=== PATIENT | female | born 1990 | race Caucasian/White ===

== ENCOUNTER 2017-05-29 05:31 | Inpatient (IN) | payer SELFPAY ==
[2017-05-29] MEDS ORDERED: Sodium Chloride 0.9% 2.5 ML Syringe FLUSH PRN (06:34)
[2017-05-29] MEDS ORDERED: Sodium Chloride 0.9% 10 ML Syringe FLUSH PRN (06:34)
[2017-05-29] MEDS ORDERED: ceFAZolin 2 GM in Premix Bag 1 BAG IV ONE (06:34)
[2017-05-29] MEDS ORDERED: Oxytocin/0.9 % Sodium Chloride 30 UNIT/500 ML BAG IV SCH (06:45)
[2017-05-29] MEDS ORDERED: Citric Acid/Sodium Citrate Solution 30 ML Cup PO SCH (06:45)
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
[2017-05-29] MEDS: Lactated Ringers 1,000 ML IV SCH ×3 (12:19→20:42)
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
[2017-05-29] MEDS ORDERED: ePHEDrine 50 MG/ML SDV ONE ×2 (20:12→20:14)
[2017-05-29] MEDS ORDERED: Ondansetron 4 MG/2 ML SDV ONE (20:12)
[2017-05-29] MEDS ORDERED: Oxytocin 10 Units/1 ML SDV ONE (20:12)
[2017-05-29] MEDS ORDERED: Morphine PF 10 MG/10 ML SDV ONE (20:13)
[2017-05-29] MEDS ORDERED: Water For Injection, Sterile 20 ML ONE (20:14)
[2017-05-29] MEDS ORDERED: ceFAZolin 1 GM Vial ONE (20:58)
[2017-05-29] MEDS ORDERED: Sodium Chloride 0.9% 20 ML ONE (20:58)
[2017-05-29] MEDS ORDERED: Octyl 2-Cyanoacrylate 1 Tube ONE (21:33)
[2017-05-29] MEDS ORDERED: Ondansetron 4 MG/2 ML SDV IVPUSH PRN (21:34)
[2017-05-29] MEDS ORDERED: Acetaminophen/oxyCODONE 325-5 MG Tab PO PRN ×2 (21:34)
[2017-05-29] MEDS ORDERED: Bisacodyl 10 MG Supp RECTAL PRN (21:34)
[2017-05-29] MEDS ORDERED: Lanolin 100% Cream 7 GM Tube TOP PRN (21:34)
[2017-05-29] MEDS ORDERED: diphenhydrAMINE 50 MG/ML SDV IVPUSH PRN ×2 (21:34→22:27)
--- NOTE | 2017-05-29 21:38 | PCM.OPNOTE ---
- General Post-Op/Procedure Note Date of Surgery/Procedure: 05/29/17 Operative Procedure(s): Repeat C/ Section Pre Op Diagnosis: IUP 39+3 previous C/section SROM Post-Op Diagnosis: Same Anesthesia Technique: Spinal Primary Surgeon: Viktor Aranda Office Services Coordinator: Lili Perez EBL in mLs: 700 Complications: None Condition: Good
[2017-05-29] MEDS ORDERED: Lactated Ringers 1,000 ML IV SCH (21:45)
[2017-05-29] MEDS ORDERED: Naloxone 0.4 MG/ML Syringe IVPUSH PRN (22:27)
[2017-05-29] MEDS ORDERED: Nalbuphine 10 MG/1 ML Vial IVPUSH PRN (22:27)
--- NOTE | 2017-05-29 22:30 | PCM.POSTAN ---
POST ANESTHESIA ASSESSMENT - MENTAL STATUS Mental Status: Alert, Oriented - RESPIRATORY Respiratory Status: Respiratory Rate WNL, Airway Patent, O2 Saturation Stable - CARDIOVASCULAR CV Status: Pulse Rate WNL, Blood Pressure Stable - GASTROINTESTINAL GI Status: No Symptoms - POST OP HYDRATION Hydration Status: Adequate & Stable
[2017-05-29] MEDS: Ketorolac 30 MG/ML SDV IVPUSH SCH (23:21)
--- NOTE | 2017-05-30 00:10 | OR ---
SURGEON: Viktor Aranda MD DATE OF PROCEDURE: PREOPERATIVE DIAGNOSES: Intrauterine 39 plus 3, previous section, spontaneous rupture of the membrane. POSTOPERATIVE DIAGNOSES: Intrauterine 39 plus 3, previous section, spontaneous rupture of the membrane. OPERATION: Repeat low transverse section. PASSENGER RELATIONS REPRESENTATIVE: Lili Perez CNM. ANESTHESIA: Spinal, Jeremy Angela and Dr. Martin. ESTIMATED BLOOD LOSS: 700 mL. COMPLICATIONS: None. BENEFIT AUTHORIZER: Dr. Morfin. FINDING: Male fetus. score reported to be 8 and 9. Normal uterus, tubes, and ovaries. INDICATION FOR SURGERY: This patient is term. She is 39 plus 3. She is followed in our clinic. She had a previous section. She is scheduled for elective repeat section tomorrow. However, the patient presented to Labor and Delivery with spontaneous rupture of the membrane that was confirmed. The decision made to do section one day early. PROCEDURE IN DETAIL: The patient was brought to the OR, properly identified and after adequate level of spinal anesthesia, the patient was prepped and draped in sterile fashion as usual. Low transverse Pfannenstiel skin incision was done. The Lucretia fascia and rectus fascia was opened in direction of the incision. The 2 recti muscles were and peritoneal cavity was entered. Bladder flap was raised in the usual manner pushing the bladder away from the lower uterine segment. Low transverse uterine incision extended manually and fetus was delivered and was in a vertex position. The fetus was male, cried immediately. score reported to be 8 and 9. The weight is not available. The placenta delivered spontaneous complete and intact without any problem and then repair of the lower uterine segment was done with 2-0 Vicryl continuous interlocking in 2 layers. Reperitonealization done with 3-0 Vicryl continuous and then the peritoneal cavity evacuated completely from all blood and blood clot, and closed with 3-0 Vicryl continuous. The rectus fascia was closed with #1 PDS double strand continuous. The Lucretia's fascia with 3-0 Vicryl continuous and skin closed with 3-0 on a Stevenson needle in a subcuticular fashion and Dermabond. Instrument and sponge count was correct. The patient tolerated the procedure well and went to recovery room in stable general condition. BINA / KALYANI /[id number]
[2017-05-30] MEDS ORDERED: Ibuprofen 800 MG Tab PO PRN (05:00)
[2017-05-30] MEDS: Ketorolac 30 MG/ML SDV IVPUSH SCH ×4 (05:36→22:22)
[2017-05-30] MEDS: Docusate Sodium 100 MG Cap PO SCH ×2 (08:55→21:51)
[2017-05-30] MEDS: fentaNYL 100 MCG/2 ML SDV IVPUSH PRN ×2 (08:56→15:20)
--- NOTE | 2017-05-30 09:18 | PCM.SURGPN ---
- General Info Date of Service: 05/30/17 POD#: 1 Functional Status: Reports: Pain Controlled - Review of Systems General: Reports: No Symptoms HEENT: Reports: No Symptoms Pulmonary: Reports: No Symptoms Cardiovascular: Reports: No Symptoms Gastrointestinal: Reports: No Symptoms Genitourinary: Reports: No Symptoms Musculoskeletal: Reports: No Symptoms Skin: Reports: No Symptoms Neurological: Reports: No Symptoms Psychiatric: Reports: No Symptoms - Patient Data Vitals - Most Recent: Last Vital Signs Temp 36.8 C 05/30/17 04:00 Pulse 64 05/30/17 04:00 Resp 18 05/30/17 06:00 BP 106/62 05/30/17 04:00 Pulse Ox 99 05/30/17 06:00 Weight - Most Recent: 96.615 kg I&O - Last 24 Hours: Intake & Output 05/29/17 05/30/17 05/30/17 22:59 06:59 14:59 Intake Total 2100 Output Total 420 2200 Balance 1680 -2200 Lab Results Last 24 Hrs: Laboratory Results - last 24 hr 05/30/17 Range/Units 05:28 Hgb 10.9 L (12.0-16.0) g/dL Hct 33.4 L (36.0-46.0) % Med Orders - Current: Current Medications Bisacodyl (Dulcolax) 10 mg RECTAL .ONCE PRN PRN Reason: Constipation Citric Acid/Sodium Citrate (Bicitra Solution) 30 ml PO .ONCE JILLIAN Diphenhydramine HCl (Benadryl) 25 mg IVPUSH Q6H PRN PRN Reason: Itching or Nausea Diphenhydramine HCl (Benadryl) 25 mg IVPUSH Q4H PRN PRN Reason: Itching Stop: 05/30/17 22:27 Last Admin: 05/30/17 03:50 Dose: 25 mg Docusate Sodium (Colace) 100 mg PO BID IJLLIAN Last Admin: 05/30/17 08:55 Dose: 100 mg Emollient Ointment (Lansinoh Hpa) 0 gm TOP ASDIRECTED PRN PRN Reason: Sore Nipples Fentanyl (Sublimaze) 50 mcg IVPUSH Q45M PRN PRN Reason: Pain (severe 7-10) Stop: 05/30/17 22:28 Last Admin: 05/30/17 08:56 Dose: 50 mcg Oxytocin/Sodium Chloride (Oxytocin 30 Unit/500 Ml-Ns) 30 unit in 500 mls @ 250 mls/hr IV TITRATE [facility] Lactated Ringer's (Ringers, Lactated) 1,000 mls @ 500 mls/hr IV .BOLUS [facility] Last Admin: 05/29/17 20:42 Dose: 999 mls/hr Lactated Ringer's (Ringers, Lactated) 1,000 mls @ 125 mls/hr IV ASDIRECTED [facility] Ibuprofen (Motrin) 800 mg PO Q8H PRN PRN Reason: mild pain or fever Ketorolac Tromethamine (Toradol) 30 mg IVPUSH Q6H JILLIAN Stop: 05/30/17 23:01 Last Admin: 05/30/17 05:36 Dose: 30 mg Nalbuphine HCl (Nubain) 5 mg IVPUSH Q3H PRN PRN Reason: Pruritis Stop: 05/30/17 22:27 Last Admin: 05/29/17 23:56 Dose: 5 mg Naloxone HCl (Narcan) 0.1 mg IVPUSH ONETIME PRN PRN Reason: Respiratory Depression Stop: 05/30/17 22:27 Ondansetron HCl (Zofran) 4 mg IVPUSH Q4H PRN PRN Reason: Nausea/Vomiting Oxycodone/Acetaminophen (Percocet 325-5 Mg) 1 tab PO Q4H PRN PRN Reason: Pain (moderate 4-6) Oxycodone/Acetaminophen (Percocet 325-5 Mg) 2 tab PO Q4H PRN PRN Reason: Pain (moderate 4-6) Sodium Chloride (Saline Flush) 10 ml FLUSH ASDIRECTED PRN PRN Reason: Keep Vein Open Sodium Chloride (Saline Flush) 2.5 ml FLUSH ASDIRECTED PRN PRN Reason: Keep Vein Open Discontinued Medications Cefazolin Sodium (Ancef) Confirm Administered Dose 2 gm .ROUTE .STK-MED ONE Stop: 05/29/17 20:59 Ephedrine Sulfate (Ephedrine Sulfate) Confirm Administered Dose 50 mg .ROUTE .STK-MED ONE Stop: 05/29/17 20:13 Ephedrine Sulfate (Ephedrine Sulfate) Confirm Administered Dose 50 mg .ROUTE .STK-MED ONE Stop: 05/29/17 20:15 Cefazolin Sodium/Dextrose 2 gm (/ Premix) 50 mls @ 100 mls/hr IV ONETIME ONE Stop: 05/29/17 07:03 Sterile Water (Sterile Water For Injection) Confirm Administered Dose 20 mls @ as directed .ROUTE .STK-MED ONE Stop: 05/29/17 20:15 Sodium Chloride (Normal Saline) Confirm Administered Dose 20 mls @ as directed .ROUTE .STK-MED ONE Stop: 05/29/17 20:59 Morphine Sulfate (Duramorph Pf) Confirm Administered Dose 10 mg .ROUTE .STK-MED ONE Stop: 05/29/17 20:14 Octyl Cyanoacrylate (Dermabond Advance) Confirm Administered Dose 1 applic .ROUTE .STK-MED ONE Stop: 05/29/17 21:34 Ondansetron HCl (Zofran) Confirm Administered Dose 4 mg .ROUTE .STK-MED ONE Stop: 05/29/17 20:13 Oxytocin (Pitocin) Confirm Administered Dose 20 unit .ROUTE .STK-MED ONE Stop: 05/29/17 20:13 - Exam Wound/Incisions: Healing Well General: Alert, Oriented HEENT: Pupils Equal Neck: Supple Lungs: Clear to Auscultation, Normal Respiratory Effort Cardiovascular: Regular Rate, Regular Rhythm GI/Abdominal Exam: Normal Bowel Sounds, Soft, Non-Tender, No Organomegaly, No Distention, No Abnormal Bruit, No Mass, Pelvis Stable Extremities: Normal Inspection, Normal Range of Motion, Non-Tender, No Pedal Edema, Normal Capillary Refill Skin: Warm, Dry, Intact Neurological: No New Focal Deficit Psy/Mental Status: Alert, Normal Affect, Normal Mood - Problem List Review Problem List Initiated/Reviewed/Updated: Yes - My Orders Last 24 Hours: Active Orders 24 hr Category Date Time Status Patient Status [ADT] Routine ADT 05/29/17 21:34 Active Ambulate [RC] PER UNIT ROUTINE Care 05/29/17 21:34 Active Antiembolic Devices [RC] PER UNIT ROUTINE Care 05/29/17 21:35 Active Bradycardia-Neuroaxis Duramorp [RC] ROUTINE Care 05/29/17 22:27 Active Communication Order [RC] PER UNIT ROUTINE Care 05/29/17 21:34 Active Communication Order [RC] PER UNIT ROUTINE Care 05/29/17 21:34 Active Communication Order [RC] Per Unit Routine Care 05/29/17 21:34 Active Hypertension-Neuroaxis Duramor [RC] ROUTINE Care 05/29/17 22:27 Active Hypotension-Neuroaxis [employer] [RC] ROUTINE Care 05/29/17 22:27 Active May Shower [RC] ASDIRECTED Care 05/29/17 21:34 Active Oxygen Therapy [RC] PER UNIT ROUTINE Care 05/29/17 22:27 Active RT Incentive Spirometry [RC] Q2HWA Care 05/29/17 21:34 Active Vital Signs [RC] PER UNIT ROUTINE Care 05/29/17 21:34 Active Vital Signs [RC] Q1H Care 05/29/17 22:27 Active Regular Diet [DIET] Diet 05/30/17 Breakfast Active Acetaminophen/oxyCODONE [Percocet 325-5 MG] Med 05/29/17 21:34 Active 1 tab PO Q4H PRN Acetaminophen/oxyCODONE [Percocet 325-5 MG] Med 05/29/17 21:34 Active 2 tab PO Q4H PRN Bisacodyl [Dulcolax] Med 05/29/17 21:34 Active 10 mg RECTAL .ONCE PRN Docusate Sodium [Colace] Med 05/30/17 09:00 Active 100 mg PO BID Ibuprofen [Motrin] Med 05/30/17 05:00 Active 800 mg PO Q8H PRN Ketorolac [Toradol] Med 05/29/17 23:00 Active 30 mg IVPUSH Q6H Lactated Ringers [Ringers, Lactated] 1,000 ml Med 05/29/17 21:45 Active IV ASDIRECTED Lanolin [Lansinoh HPA] Med 05/29/17 21:34 Active See Dose Instructions TOP ASDIRECTED PRN Nalbuphine [Nubain] Med 05/29/17 22:27 Active 5 mg IVPUSH Q3H PRN Naloxone [Narcan] Med 05/29/17 22:27 Active 0.1 mg IVPUSH ONETIME PRN Ondansetron [Zofran] Med 05/29/17 21:34 Active 4 mg IVPUSH Q4H PRN diphenhydrAMINE [Benadryl] Med 05/29/17 22:27 Active 25 mg IVPUSH Q4H PRN diphenhydrAMINE [Benadryl] Med 05/29/17 21:34 Active 25 mg IVPUSH Q6H PRN fentaNYL [Sublimaze] Med 05/29/17 22:27 Active 50 mcg IVPUSH Q45M PRN AN Neuroaxis Duramorph Precaution Reflex [OM.PC] PER Ot 05/29/17 22:30 Ordered UNIT ROUTINE AN Neuroaxis Duramorph Precaution Reflex [OM.PC] PER Ot 05/30/17 22:30 Ordered UNIT ROUTINE Assess Lochia [WOMSER] Per Unit Routine Ot 05/29/17 21:34 Ordered Assess Uterine Involution [WOMSER] Per Unit Routine Ot 05/29/17 21:34 Ordered Breast Pump [WOMSER] Per Unit Routine Ot 05/29/17 21:34 Ordered Peripheral IV Discontinue [OM.PC] Routine Ot 05/29/17 21:34 Ordered Sequential Compression Device [OM.PC] Per Unit Routine Ot 05/29/17 21:34 Ordered Medication Orders Bisacodyl (Dulcolax) 10 mg RECTAL .ONCE PRN PRN Reason: Constipation Citric Acid/Sodium Citrate (Bicitra Solution) 30 ml PO .ONCE JILLIAN Diphenhydramine HCl (Benadryl) 25 mg IVPUSH Q6H PRN PRN Reason: Itching or Nausea Diphenhydramine HCl (Benadryl) 25 mg IVPUSH Q4H PRN PRN Reason: Itching Stop: 05/30/17 22:27 Last Admin: 05/30/17 03:50 Dose: 25 mg Docusate Sodium (Colace) 100 mg PO BID [facility] Last Admin: 05/30/17 08:55 Dose: 100 mg Emollient Ointment (Lansinoh Hpa) 0 gm TOP ASDIRECTED PRN PRN Reason: Sore Nipples Fentanyl (Sublimaze) 50 mcg IVPUSH Q45M PRN PRN Reason: Pain (severe 7-10) Stop: 05/30/17 22:28 Last Admin: 05/30/17 08:56 Dose: 50 mcg Oxytocin/Sodium Chloride (Oxytocin 30 Unit/500 Ml-Ns) 30 unit in 500 mls @ 250 mls/hr IV TITRATE [facility] Lactated Ringer's (Ringers, Lactated) 1,000 mls @ 500 mls/hr IV .BOLUS [facility] Last Admin: 05/29/17 20:42 Dose: 999 mls/hr Infusion: 05/29/17 20:42 Dose: 999 mls/hr Admin: 05/29/17 20:10 Dose: 999 mls/hr Infusion: 05/29/17 14:19 Dose: 500 mls/hr Admin: 05/29/17 12:19 Dose: 500 mls/hr Lactated Ringer's (Ringers, Lactated) 1,000 mls @ 125 mls/hr IV ASDIRECTED [facility] Ibuprofen (Motrin) 800 mg PO Q8H PRN PRN Reason: mild pain or fever Ketorolac Tromethamine (Toradol) 30 mg IVPUSH Q6H JILLIAN Stop: 05/30/17 23:01 Last Admin: 05/30/17 05:36 Dose: 30 mg Admin: 05/29/17 23:21 Dose: 30 mg Nalbuphine HCl (Nubain) 5 mg IVPUSH Q3H PRN PRN Reason: Pruritis Stop: 05/30/17 22:27 Last Admin: 05/29/17 23:56 Dose: 5 mg Naloxone HCl (Narcan) 0.1 mg IVPUSH ONETIME PRN PRN Reason: Respiratory Depression Stop: 05/30/17 22:27 Ondansetron HCl (Zofran) 4 mg IVPUSH Q4H PRN PRN Reason: Nausea/Vomiting Oxycodone/Acetaminophen (Percocet 325-5 Mg) 1 tab PO Q4H PRN PRN Reason: Pain (moderate 4-6) Oxycodone/Acetaminophen (Percocet 325-5 Mg) 2 tab PO Q4H PRN PRN Reason: Pain (moderate 4-6) Sodium Chloride (Saline Flush) 10 ml FLUSH ASDIRECTED PRN PRN Reason: Keep Vein Open Sodium Chloride (Saline Flush) 2.5 ml FLUSH ASDIRECTED PRN PRN Reason: Keep Vein Open - Assessment Assessment (Free Text/Narrative):: S/P C/section doing well
--- NOTE | 2017-05-30 19:10 | PCM48HPAN ---
Post Anesthesia Note - EVALUATION WITHIN 48HRS OF ANESTHETIC Vital Signs in Normal Range: Yes Patient Participated in Evaluation: Yes Respiratory Function Stable: Yes Airway Patent: Yes Cardiovascular Function Stable: Yes Hydration Status Stable: Yes Pain Control Satisfactory: Yes Nausea and Vomiting Control Satisfactory: Yes Mental Status Recovered: Yes
[2017-05-31] MEDS: Docusate Sodium 100 MG Cap PO SCH (08:34)
--- NOTE | 2017-05-31 10:27 | PCM.DCSUM1 ---
Discharge Summary - Discharge Data Discharge Date: 05/31/17 Discharge Disposition: Home, Self-Care 01 Condition: Good - Patient Summary/Data Operative Procedure(s) Performed: Repeat C/ Section - Patient Instructions Diet: Usual Diet as Tolerated Activity: As Tolerated Driving: Do Not Drive Showering/Bathing: May Shower Wound/Incision Care: Keep Operative Site/Wound Site Clean and Dry Notify Provider of: Fever, Increased Pain - Discharge Plan Home Medications: Home Meds Diazepam [Valium] 10 mg PO 05/25/17 [History] Vit W-Ca,Fe,FA(<1 mg) [ Vitamins] 05/25/17 [History] - General Info Date of Service: 05/31/17 Functional Status: Reports: Pain Controlled - Review of Systems General: Reports: No Symptoms HEENT: Reports: No Symptoms Pulmonary: Reports: No Symptoms Cardiovascular: Reports: No Symptoms Gastrointestinal: Reports: No Symptoms Genitourinary: Reports: No Symptoms Musculoskeletal: Reports: No Symptoms Skin: Reports: No Symptoms Neurological: Reports: No Symptoms Psychiatric: Reports: No Symptoms - Patient Data Vitals - Most Recent: Last Vital Signs Temp 37.2 C 05/31/17 08:00 Pulse 88 05/31/17 08:00 Resp 16 05/31/17 08:00 BP 122/72 05/31/17 08:00 Pulse Ox 97 05/31/17 08:00 Weight - Most Recent: 96.615 kg I&O - Last 24 hours: Intake & Output 05/30/17 05/31/17 05/31/17 22:59 06:59 14:59 Output Total 1100 Balance -1100 Med Orders - Current: Current Medications Bisacodyl (Dulcolax) 10 mg RECTAL .ONCE PRN PRN Reason: Constipation Citric Acid/Sodium Citrate (Bicitra Solution) 30 ml PO .ONCE JILLIAN Diphenhydramine HCl (Benadryl) 25 mg IVPUSH Q6H PRN PRN Reason: Itching or Nausea Docusate Sodium (Colace) 100 mg PO BID [facility] Last Admin: 05/31/17 08:34 Dose: 100 mg Emollient Ointment (Lansinoh Hpa) 0 gm TOP ASDIRECTED PRN PRN Reason: Sore Nipples Oxytocin/Sodium Chloride (Oxytocin 30 Unit/500 Ml-Ns) 30 unit in 500 mls @ 250 mls/hr IV TITRATE JILLIAN Lactated Ringer's (Ringers, Lactated) 1,000 mls @ 500 mls/hr IV .BOLUS JILLIAN Last Admin: 05/29/17 20:42 Dose: 999 mls/hr Lactated Ringer's (Ringers, Lactated) 1,000 mls @ 125 mls/hr IV ASDIRECTED JILLIAN Ibuprofen (Motrin) 800 mg PO Q8H PRN PRN Reason: mild pain or fever Ondansetron HCl (Zofran) 4 mg IVPUSH Q4H PRN PRN Reason: Nausea/Vomiting Oxycodone/Acetaminophen (Percocet 325-5 Mg) 1 tab PO Q4H PRN PRN Reason: Pain (moderate 4-6) Last Admin: 05/31/17 08:34 Dose: 1 tab Oxycodone/Acetaminophen (Percocet 325-5 Mg) 2 tab PO Q4H PRN PRN Reason: Pain (moderate 4-6) Sodium Chloride (Saline Flush) 10 ml FLUSH ASDIRECTED PRN PRN Reason: Keep Vein Open Sodium Chloride (Saline Flush) 2.5 ml FLUSH ASDIRECTED PRN PRN Reason: Keep Vein Open Discontinued Medications Cefazolin Sodium (Ancef) Confirm Administered Dose 2 gm .ROUTE .STK-MED ONE Stop: 05/29/17 20:59 Diphenhydramine HCl (Benadryl) 25 mg IVPUSH Q4H PRN PRN Reason: Itching Stop: 05/30/17 22:27 Last Admin: 05/30/17 03:50 Dose: 25 mg Ephedrine Sulfate (Ephedrine Sulfate) Confirm Administered Dose 50 mg .ROUTE .STK-MED ONE Stop: 05/29/17 20:13 Ephedrine Sulfate (Ephedrine Sulfate) Confirm Administered Dose 50 mg .ROUTE .STK-MED ONE Stop: 05/29/17 20:15 Fentanyl (Sublimaze) 50 mcg IVPUSH Q45M PRN PRN Reason: Pain (severe 7-10) Stop: 05/30/17 22:28 Last Admin: 05/30/17 15:20 Dose: 50 mcg Cefazolin Sodium/Dextrose 2 gm (/ Premix) 50 mls @ 100 mls/hr IV ONETIME ONE Stop: 05/29/17 07:03 Last Admin: 05/30/17 19:11 Dose: Not Given Sterile Water (Sterile Water For Injection) Confirm Administered Dose 20 mls @ as directed .ROUTE .STK-MED ONE Stop: 05/29/17 20:15 Sodium Chloride (Normal Saline) Confirm Administered Dose 20 mls @ as directed .ROUTE .STK-MED ONE Stop: 05/29/17 20:59 Ketorolac Tromethamine (Toradol) 30 mg IVPUSH Q6H JILLIAN Stop: 05/30/17 23:01 Last Admin: 05/30/17 22:22 Dose: 30 mg Morphine Sulfate (Duramorph Pf) Confirm Administered Dose 10 mg .ROUTE .STK-MED ONE Stop: 05/29/17 20:14 Nalbuphine HCl (Nubain) 5 mg IVPUSH Q3H PRN PRN Reason: Pruritis Stop: 05/30/17 22:27 Last Admin: 05/29/17 23:56 Dose: 5 mg Naloxone HCl (Narcan) 0.1 mg IVPUSH ONETIME PRN PRN Reason: Respiratory Depression Stop: 05/30/17 22:27 Octyl Cyanoacrylate (Dermabond Advance) Confirm Administered Dose 1 applic .ROUTE .STK-MED ONE Stop: 05/29/17 21:34 Ondansetron HCl (Zofran) Confirm Administered Dose 4 mg .ROUTE .STK-MED ONE Stop: 05/29/17 20:13 Oxytocin (Pitocin) Confirm Administered Dose 20 unit .ROUTE .STK-MED ONE Stop: 05/29/17 20:13 - Exam General: Reports: Alert, Oriented HEENT: Reports: Pupils Equal, Pupils Reactive, EOMI, Mucous Membr. Moist/Cowlic Neck: Reports: Supple Lungs: Reports: Clear to Auscultation, Normal Respiratory Effort Cardiovascular: Reports: Regular Rate, Regular Rhythm GI/Abdominal Exam: Normal Bowel Sounds, Soft, Non-Tender, No Organomegaly, No Distention, No Abnormal Bruit, No Mass, Pelvis Stable (Female) Exam: Normal External Exam, Normal Speculum Exam, Normal Bimanual Exam Rectal (Female) Exam: Normal Exam, Normal Rectal Tone Back Exam: Reports: Normal Inspection, Full Range of Motion Extremities: Normal Inspection, Normal Range of Motion, Non-Tender, No Pedal Edema, Normal Capillary Refill Skin: Reports: Warm, Dry, Intact Wound/Incisions: Reports: Healing Well Neurological: Reports: No New Focal Deficit Psy/Mental Status: Reports: Alert, Normal Affect, Normal Mood *Q Meaningful Use (DIS) - VTE *Q VTE Criteria *Q: - Stroke *Q Stroke Criteria *Q: - AMI *Q AMI Criteria *Q:
== END 2017-05-31 14:05 | disposition home or self-care (01) | DRG 766 ==
LOC: MW.OBCHECK 05:31 → MW.OB 05:34 → MW.OBCHECK 06:34 → MW.OB 21:18
PROVIDERS: ADMIT Obstetrics & Gynecology; ATTEND Obstetrics & Gynecology
PROC: 10D00Z1 Extraction of Products of Conception, Low, Open Approach (ICD-10-PCS; principal; 2017-05-29)
DX: O42.02 Full-term premature rupture of membranes, onset of labor within 24 hours of rupture (principal); Z3A.39 39 weeks gestation of pregnancy; Z37.0 Single live birth
CPT/HCPCS: 01961; 36415; 59025; 84112; 85014; 85018; 85027; 86850; 86900; 86901; A9270-GY; J0690; J1200; J1885; J2270; J2300; J2405; J2590; J3010; J7120

== ENCOUNTER 2024-10-04 15:10 | Emergency (ER) | payer SELFPAY ==
[2024-10-04 16:44] LABS: APPEARANCE,URINE CLEAR; BILIRUBIN,URINE NEGATIVE (NEGATIVE); COLOR,URINE YELLOW; GLUCOSE,URINE NEGATIVE (NEGATIVE); KETONES,URINE NEGATIVE (NEGATIVE); LEUKOCYTE ESTERASE,URINE NEGATIVE (NEGATIVE); NITRITE,URINE NEGATIVE (NEGATIVE); OCCULT BLOOD,URINE NEGATIVE (NEGATIVE); PROTEIN,URINE NEGATIVE (NEGATIVE); UROBILINOGEN,URINE 0.2 EU/dL (<2.0)
== END 2024-10-04 19:55 | disposition home or self-care (01) ==
LOC: MW.ED 15:10
DX: H65.191 Other acute nonsuppurative otitis media, right ear (principal); B35.4 Tinea corporis; R30.0 Dysuria; Z79.899 Other long term (current) drug therapy
CPT/HCPCS: 81003; 81025; 99283